=== PATIENT | female | born 1950 | race Caucasian/White ===

== ENCOUNTER 2021-08-31 07:31 | Inpatient (IN) | payer MEDICARE ==
[~2021-08-31] VITALS: Ht 167.6 cm; Wt 68.0 kg
[2021-08-31] MEDS ORDERED: [UNRECOGNIZED DRUG - OTHER] TD (08:28)
[2021-08-31] MEDS ORDERED: TRAZ-257 PO (08:28)
[2021-08-31] MEDS ORDERED: SERT25TA PO (08:28)
[2021-08-31] MEDS ORDERED: LEVO25TA7 PO (08:28)
[2021-08-31 08:55] VITALS: BP 117/70
[2021-08-31] MEDS ORDERED: LORAZEPAM 0.5 MG TABLET PO PRN (09:00)
[2021-08-31] MEDS ORDERED: ACETAMINOPHEN 325 MG TABLET PO PRN (09:00)
[2021-08-31] MEDS ORDERED: BLOOD SUGAR DIAGNOSTIC 1 EACH STRIP IN ONE (09:00)
[2021-08-31] MEDS ORDERED: MAGNESIUM HYDROXIDE 30 ML UDC PO PRN (09:00)
[2021-08-31] MEDS ORDERED: MAG HYDROX/AL HYDROX/SIMETH 30 ML UDC PO PRN (09:00)
[2021-08-31] MEDS: SERTRALINE HCL 25 MG TABLET PO SCH (13:31)
[2021-08-31 16:00] VITALS: BP 134/65
[2021-08-31 18:13] LABS: THYROID STIMULATING HORMONE 1.636 uIU/mL (0.358-3.74)
[2021-08-31 20:00] VITALS: BP 151/81
[2021-08-31] MEDS: TEMAZEPAM 7.5 MG CAPSULE PO PRN (21:16)
[2021-08-31] MEDS ORDERED: TEMAZEPAM 7.5 MG CAPSULE PO PRN (22:00)
[2021-09-01] MEDS: LORAZEPAM 0.5 MG TABLET PO PRN ×3 (02:31→15:38)
[2021-09-01 07:47] LABS: ALBUMIN 3.3 g/dL (3.4-5.0); BILIRUBIN,TOTAL 0.4 mg/dL (0.2-1.0); CALCIUM, SERUM 9.3 mg/dL (8.5-10.1); CREATININE 0.7 mg/dL (0.6-1.3)
[2021-09-01 07:50] LABS: CHOLESTEROL 225 mg/dL (<200); HDL CHOLESTEROL 54 mg/dL (40-60); LDL 149 mg/dL (0-99); TRIGLYCERIDES 114 mg/dL (30-150)
[2021-09-01] MEDS: LEVOTHYROXINE SODIUM 25 MCG TABLET PO SCH (08:43)
[2021-09-01] MEDS: SERTRALINE HCL 25 MG TABLET PO SCH (08:43)
[2021-09-01] MEDS: TEMAZEPAM 7.5 MG CAPSULE PO PRN (21:44)
[2021-09-02] MEDS: LORAZEPAM 0.5 MG TABLET PO PRN ×2 (01:08→20:57)
[2021-09-02 08:00] VITALS: BP 148/73
[2021-09-02] MEDS: LEVOTHYROXINE SODIUM 25 MCG TABLET PO SCH (09:02)
[2021-09-02] MEDS: SERTRALINE HCL 25 MG TABLET PO SCH (09:02)
[2021-09-02] MEDS: LISINOPRIL (5MG) 5 MG TABLET PO SCH (11:50)
[2021-09-02 17:20] VITALS: BP 116/62
[2021-09-02 19:44] VITALS: BP 110/52
[2021-09-03] MEDS: LORAZEPAM 0.5 MG TABLET PO PRN ×3 (04:20→21:05)
[2021-09-03 08:00] VITALS: BP 139/67
[2021-09-03] MEDS: LISINOPRIL (5MG) 5 MG TABLET PO SCH (08:25)
[2021-09-03] MEDS: SERTRALINE HCL 50 MG TABLET PO SCH (08:25)
[2021-09-03] MEDS: LEVOTHYROXINE SODIUM 25 MCG TABLET PO SCH (08:25)
[2021-09-03 16:00] VITALS: BP 123/64
[2021-09-03 20:00] VITALS: BP 120/68
[2021-09-03] MEDS: TEMAZEPAM 7.5 MG CAPSULE PO PRN (21:47)
[2021-09-04 08:00] VITALS: BP 130/66
[2021-09-04] MEDS: LISINOPRIL (5MG) 5 MG TABLET PO SCH (08:03)
[2021-09-04] MEDS: LEVOTHYROXINE SODIUM 25 MCG TABLET PO SCH (08:03)
[2021-09-04] MEDS: SERTRALINE HCL 50 MG TABLET PO SCH (08:03)
[2021-09-04 16:00] VITALS: BP 109/58
[2021-09-04 19:56] VITALS: BP 132/63
[2021-09-05] MEDS: TEMAZEPAM 7.5 MG CAPSULE PO PRN ×2 (01:19→21:13)
[2021-09-05 08:00] VITALS: BP 127/61
[2021-09-05] MEDS: LEVOTHYROXINE SODIUM 25 MCG TABLET PO SCH (08:51)
[2021-09-05] MEDS: SERTRALINE HCL 50 MG TABLET PO SCH (08:51)
[2021-09-05] MEDS: LISINOPRIL (5MG) 5 MG TABLET PO SCH (08:52)
[2021-09-05 16:13] VITALS: BP 125/63
[2021-09-05 20:00] VITALS: BP 121/66
[2021-09-06 08:00] VITALS: BP 115/66
[2021-09-06] MEDS: SERTRALINE HCL 50 MG TABLET PO SCH (08:08)
[2021-09-06] MEDS: LEVOTHYROXINE SODIUM 25 MCG TABLET PO SCH (08:08)
[2021-09-06] MEDS: LISINOPRIL (5MG) 5 MG TABLET PO SCH (08:09)
[2021-09-06 16:00] VITALS: BP 127/69
[2021-09-06 20:00] VITALS: BP 141/62
[2021-09-06] MEDS: TEMAZEPAM 7.5 MG CAPSULE PO PRN (23:44)
[2021-09-07] MEDS: LORAZEPAM 0.5 MG TABLET PO PRN ×2 (03:46→20:03)
[2021-09-07] MEDS: SERTRALINE HCL 50 MG TABLET PO SCH (07:45)
[2021-09-07] MEDS: LEVOTHYROXINE SODIUM 25 MCG TABLET PO SCH (07:45)
[2021-09-07] MEDS: LISINOPRIL (5MG) 5 MG TABLET PO SCH (07:46)
[2021-09-07 08:00] VITALS: BP 133/75
[2021-09-07 16:00] VITALS: BP 129/65
[2021-09-07] MEDS: SERTRALINE HCL 25 MG TABLET PO SCH (17:46)
[2021-09-07 19:51] VITALS: BP 120/61
[2021-09-07] MEDS: TEMAZEPAM 7.5 MG CAPSULE PO PRN (22:18)
[2021-09-08] MEDS: LISINOPRIL (5MG) 5 MG TABLET PO SCH (07:51)
[2021-09-08] MEDS: LEVOTHYROXINE SODIUM 25 MCG TABLET PO SCH (07:51)
[2021-09-08] MEDS: SERTRALINE HCL 50 MG TABLET PO SCH (07:51)
[2021-09-08 08:00] VITALS: BP 116/66
[2021-09-08 16:00] VITALS: BP 158/63
[2021-09-08] MEDS: SERTRALINE HCL 25 MG TABLET PO SCH (17:39)
[2021-09-08 19:48] VITALS: BP 132/72
[2021-09-08] MEDS: TEMAZEPAM 7.5 MG CAPSULE PO PRN (20:33)
[2021-09-09 08:00] VITALS: BP 145/96
[2021-09-09 08:08] VITALS: BP 145/96
[2021-09-09] MEDS: LISINOPRIL (5MG) 5 MG TABLET PO SCH (08:08)
[2021-09-09] MEDS: LEVOTHYROXINE SODIUM 25 MCG TABLET PO SCH (08:08)
[2021-09-09] MEDS: SERTRALINE HCL 50 MG TABLET PO SCH (08:10)
== END 2021-09-09 11:20 | disposition home or self-care (01) | DRG 881 ==
LOC: GPS 07:31
PROVIDERS: ADMIT Nurse Practitioner Psychiatric/Mental Health; ATTEND Internal Medicine
DX: F32.9 Major depressive disorder, single episode, unspecified (principal); F41.9 Anxiety disorder, unspecified; E03.9 Hypothyroidism, unspecified; I10 Essential (primary) hypertension; T39.012D Poisoning by aspirin, intentional self-harm, subsequent encounter
CPT/HCPCS: 36415; 73130-TC; 80048-TC; 80053-TC; 80061-TC; 84439-TC; 84443-TC; 87081-TC